=== PATIENT | female | born 1935 | race Caucasian/White ===

== ENCOUNTER → 2016-11-29 | Day surgery (SDC) | payer OTHER, MEDICARE ==
[~2016-11-29] VITALS: Ht 162.6 cm; Wt 62.1 kg
[~2016-11-29] MED LIST: METFORMIN HCL750 M1 PO; OLANZAPINE5 M2 PO; TIMOLOL MALEATE5 M4 OPH
--- NOTE | 2016-11-29 15:44 | Operative Report ---
Operative/Inv Procedure Report Surgery Date: 11/29/16 Name of Procedure: Aortogram, bilateral iliofemoral angiogram with bilateral runoff, selective left pelvic angiogram, left SFA and above-knee popliteal angioplasty (6mm Lutonix Drug-balloon) and stenting, intravascular ultrasound, additional vessel intravascular ultrasound, ultrasound guidance for vascular access, Exoseal vascular closure device Pre-Operative Diagnosis: PAD with non-healing Left leg ankle ulcer Post-Operative Diagnosis: PAD with non-healing Left leg ankle ulcer Estimated Blood Loss: less than 50ml Surgeon/Real Estate Accountant: ANTONIO MCPHERSON MD Anesthesia: local monitored anesthesi Operative Indication: 80-year-old female with a history of peripheral arterial disease and a nonhealing left lateral ankle ulcer. This is been there for 6-12 months. A long course of wound care was attempted as per the patient's request. However due to a stalled wound the decision was made to proceed with intervention. Risks benefits and alternatives were explained to her and the family including bleeding, infection, pain, scar, limb loss and . Operative/Procedure Note Note: Patient brought into the OR and laid supine on the table. A timeout was performed. The right femoral artery was selected for access. This was done with ultrasound guidance. A right femoral sheath was placed. Over this an Omni Flush catheter was placed. An aortogram and bilateral iliac angiogram was then performed. Bilateral runoff was also performed and a left pelvic angiogram was required to access the left side. Aortography demonstrates a tortuous aortoiliac segment. The aorta, bilateral iliac and bilateral external iliac arteries are patent. Bilateral common femoral arteries are patent. The left internal iliac artery is patent on pelvic angiography. Left lower extremity angiography demonstrates a patent proximal SFA. The profunda is patent. The mid SFA is occluded and there is reconstitution to the above-knee popliteal artery after a 200 cm segment. There is 2 vessel runoff to the left foot via the dominant anterior tibial artery. Right lower extremity angiography demonstrates a proximal and mid SFA. The profunda is patent. The distal SFA and above-knee popliteal artery demonstrated a moderate to severe stenosis. The below-knee popliteal artery is patent. 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 Due to the angiogram and the nonhealing wound the decision was made to perform an intervention. The left femoral and popliteal artery were accessed with a catheter and a combination of 0.018 and 0.035 inch wires. A 6 Ecuadorean sheath was placed over the bifurcation. The patient was bolused with 4500 units of heparin. With the combination of catheters and wires the severe occlusive disease is traversed. Intravascular ultrasound was used to further visualize the SFA and popliteal as well as the ileofemoral segment. It was also used to size the blood vessels which average 4-6 mm. A 5 mm and 6 mm balloon was used to predilate the tract. A Lutonix drug-coated balloon 6 x 1 50 was used due to the patient's severe disease. A dissection was noted with intravascular ultrasound therefore a 6 x 150 and 6 x 100 Cordis smart self-expanding nitinol stent was placed. Completion arteriography demonstrates in-line flow now to the left foot. There is no evidence of embolization. The catheter, sheath, and wire systems were pulled back over the bifurcation. An Exoseal closure device was used to seal the puncture site. Multiphasic dopplers were noted and the patient was transferred to the recovery area. BioGlue and a dressing were placed on the right groin. CC: STELLA MCKEON,DARLIN Guillory
--- NOTE | 2016-12-01 13:31 | RADIOLOGY REPORT ---
EXAMINATION: INTRAOPERATIVE FLUOROSCOPY DURING LEFT LOWER EXTREMITY ARTERIOGRAM CLINICAL INDICATION: Left lower extremity arteriogram. COMPARISON: None. TECHNIQUE: The procedure was performed by Dr. Pastrana in the operating room. FLUOROSCOPY TIME: 14 minutes 30 seconds. FINDINGS: Left lower extremity angiography and angioplasty was performed. IMPRESSION: Intraoperative fluoroscopy was utilized by Dr. Pastrana during left lower extremity angiography and angioplasty. Please refer to the operative report for a detailed description of the procedure and the real-time findings made and acted upon by the surgeon.
== END ==
LOC: STS 03:57
DX: I70.248 Atherosclerosis of native arteries of left leg with ulceration of other part of lower leg (principal); L97.329 Non-pressure chronic ulcer of left ankle with unspecified severity; I87.2 Venous insufficiency (chronic) (peripheral); I10 Essential (primary) hypertension; E78.5 Hyperlipidemia, unspecified; E11.9 Type 2 diabetes mellitus without complications; Z79.84 Long term (current) use of oral hypoglycemic drugs; Z87.891 Personal history of nicotine dependence
CPT/HCPCS: 73590-LT; C1725; C1760; C1875; J0131; J1644; J2250; Q9967